=== PATIENT | male | born 1990 | race Caucasian/White ===

== ENCOUNTER 2021-06-09 23:02 | Emergency (ER) | payer SELFPAY ==
[2021-06-09] MEDS ORDERED: diphenhydrAMINE 50 MG/ML SDV IVPUSH ONE (23:08)
[2021-06-09] MEDS ORDERED: LORazepam 2 MG/ML SDV IVPUSH ONE (23:42)
[2021-06-10] MEDS ORDERED: LORazepam 2 MG/ML SDV IVPUSH ONE (00:46)
[2021-06-10] MEDS ORDERED: Sodium Chloride 0.9% 1,000 ML IV ONE ×2 (01:02→01:42)
[2021-06-10] MEDS ORDERED: fentaNYL 100 MCG/2 ML SDV ONE ×2 (01:13→04:08)
[2021-06-10] MEDS ORDERED: fentaNYL 250 MCG in Sodium Chloride 0.9% 250 ML IV SCH ×3 (01:30→10:34)
[2021-06-10 01:45] LABS: AMPHETAMINES,URINE POSITIVE (NEGATIVE); BARBITURATES,URINE NEGATIVE (NEGATIVE); BENZODIAZEPINE,URINE NEGATIVE (NEGATIVE); MDMA (ECSTASY), URINE POSITIVE (NEGATIVE); METHADONE,URINE NEGATIVE (NEGATIVE); METHAMPHETAMINES,URINE POSITIVE (NEGATIVE); OPIATES,URINE NEGATIVE (NEGATIVE); OXYCODONE,URINE NEGATIVE (NEGATIVE); PHENCYCLIDINE,URINE NEGATIVE (NEGATIVE); TCA,URINE NEGATIVE (NEGATIVE)
[2021-06-10 02:04] LABS: O2 DELIVERY DEVICE VENTILATOR
[2021-06-10 02:07] LABS: ALLEN TEST Performed; BASE EXCESS ARTERIAL -2 mmol/L ((-2)-(+3)); O2 SATURATION ARTERIAL 99 % (95-100); PCO2 ARTERIAL 39 mmHg (35-45); PO2 ARTERIAL 102 mmHg (70-100)
[2021-06-10] MEDS ORDERED: methylPREDNISolone Sodium Succinate 125 MG/2 ML SDV IVPUSH ONE (02:15)
[2021-06-10 02:29] LABS: ANION GAP 16.3 mEq/L (7-13); CHLORIDE,CL 108 mmol/L (98-107); SODIUM,NA 145 mmol/L (136-145)
[2021-06-10] MEDS: propofoL 100 ML IV SCH ×4 (03:10→12:06)
[2021-06-10] MEDS: fentaNYL 250 MCG in Sodium Chloride 0.9% 250 ML IV SCH ×2 (04:33→07:40)
[2021-06-10] MEDS ORDERED: Calcium Chloride 10% 1 GM/10 ML Syringe IVPUSH ONE (05:55)
[2021-06-10] MEDS ORDERED: Sodium Chloride 0.9% 1,000 ML IV SCH (06:00)
[2021-06-10] MEDS ORDERED: Midazolam 50 MG in Sodium Chloride 0.9% 40 ML IV SCH (06:15)
[2021-06-10] MEDS ORDERED: propofoL 100 ML ONE (09:36)
[2021-06-10] MEDS ORDERED: Succinylcholine 200 MG/10 ML MDV IV ONE (12:36)
[2021-06-10] MEDS ORDERED: Rocuronium 100 MG/10 ML MDV IV ONE (12:36)
[2021-06-10] MEDS ORDERED: Etomidate 2 MG/ML 20 ML SDV IVPUSH ONE (12:36)
== END 2021-06-10 12:15 ==
LOC: DL.ED 23:02
DX: T28.0XXA Burn of mouth and pharynx, initial encounter (principal); F15.10 Other stimulant abuse, uncomplicated; F16.10 Hallucinogen abuse, uncomplicated; Z20.822 Contact with and (suspected) exposure to COVID-19
CPT/HCPCS: 31500; 36415; 36600; 43752; 51702; 71045; 80053; 80305; 80307; 82803; 85025; 87635; 96365; 96366; 96375; 96376; 99285; J0330; J1200; J2060; J2250; J2704; J2930; J3010; J3490; J7030; J7050; U0002

== ENCOUNTER 2021-12-15 10:45 | Emergency (ER) | payer SELFPAY ==
[2021-12-15] MEDS ORDERED: Clindamycin HCl 150 MG Cap PO ONE (23:35)
== END 2021-12-15 23:37 | disposition home or self-care (01) ==
LOC: DL.ED 10:45
DX: K04.7 Periapical abscess without sinus (principal); H93.12 Tinnitus, left ear
CPT/HCPCS: 99282; A9270-GY

== ENCOUNTER 2022-01-11 09:20 | Emergency (ER) | payer SELFPAY | END 2022-01-11 09:42 | disposition left against medical advice (07) | LOC: DL.ED 09:20 | DX: Z53.21 Procedure and treatment not carried out due to patient leaving prior to being seen by health care provider (principal) ==